=== PATIENT | male | born 1985 | race Caucasian/White ===

== ENCOUNTER 2023-06-26 11:03 | Emergency (ER) | payer MEDICAID ==
[~2023-06-26] VITALS: Ht 172.7 cm; Wt 69.0 kg
[2023-06-26 11:35] VITALS: BP 108/71; PULSE 94; RESP 18; TEMP 98.6; O2SAT 100
[2023-06-26] MEDS ORDERED: LIDOCAINE HCL 1% 20ML VIAL (Pyxis) INJ INFIL STA (15:11)
[2023-06-26 15:47] LABS: HEMATOCRIT. 29.8 % (42.0-52.0); MEAN CORPUSCULAR HEMOGLOBIN 27.7 pg (28.0-32.0); MEAN CORPUSCULAR HGB CONC 33.7 g/dL (31.0-37.0); MEAN CORPUSCULAR VOLUME 82.3 fL (80.0-94.0); MEAN PLATELET VOLUME 8.5 fl (7.4-10.4); PLATELET 289 x1000/uL (130-400); RED BLOOD CELL COUNT 3.62 mill/uL (4.7-6.1); RED CELL DISTRIBUTION WIDTH 14.5 % (11.6-14.6); WHITE BLOOD COUNT 5.5 x1000/uL (4.5-11.0)
[2023-06-26 15:48] LABS: DIFFERENTIAL COMMENT 1
[2023-06-26 15:52] LABS: CHLORIDE 103 mEq/L (98-107); INDEX HEMOLYSI 1 (1-3); INDEX ICTERIC 1 (1-4); INDEX LIPEMIC 1 (1-3); POTASSIUM 3.7 mEq/L (3.5-5.1); SODIUM 134 mEq/L (136-145)
[2023-06-26 16:02] LABS: ALANINE AMINOTRANSFERASE 24 IU/L (13-61); ALBUMIN 3.2 g/dL (3.4-5.0); ASPARTATE AMINOTRANSFERASE 20 IU/L (15-37); BILIRUBIN TOTAL 0.6 mg/dL (0.1-1.0); CALCIUM 8.7 mg/dL (8.5-10.1); CARBON DIOXIDE 25 mEq/L (21-32); CREATININE 0.7 mg/dL (0.6-1.3); GLUCOSE 117 mg/dL (70-105); PROTEIN TOTAL 9.5 g/dL (6.0-8.3); UREA NITROGEN BLOOD 11 mg/dL (7-21)
[2023-06-26] MEDS ORDERED: CEPH500T MT (16:02)
[2023-06-26] MEDS ORDERED: SULF1TAB48 MT (16:02)
[2023-06-26] MEDS ORDERED: NAPR500T7 MT (16:02)
[2023-06-26] MEDS ORDERED: SULFAMETHOXAZOLE/TRIMETHOPRIM 800/160MG TABLET PO ONE (16:15)
[2023-06-26] MEDS ORDERED: CEPHALEXIN 250MG CAPSULE PO ONE (16:15)
[2023-06-26 16:44] LABS: ERYTHROCYTE SEDIMENTATION RATE 103 mm/hr (0-15)
[2023-06-26 18:00] LABS: PLATELET ESTIMATE NORMAL
[2023-06-26 18:01] LABS: OVALOCYTES 1+
== END 2023-06-26 16:36 | disposition home or self-care (01) ==
LOC: ER 13:23
DX: L03.116 Cellulitis of left lower limb (principal); D64.9 Anemia, unspecified
CPT/HCPCS: 99284; 80053; 85025; 85651; 87040; 36415; 73610; 73630; J3490

== ENCOUNTER 2023-07-09 13:51 | Emergency (ER) | payer MEDICAID ==
[~2023-07-09] VITALS: Ht 172.7 cm; Wt 62.0 kg
[~2023-07-09 13:51] MED LIST: CEPH500T MT; NAPR500T7 MT; SULF1TAB48 MT
[2023-07-09 14:11] VITALS: BP 99/64; PULSE 98; RESP 16; TEMP 98.9; O2SAT 100
[2023-07-09] MEDS ORDERED: TOPUD MT (15:16)
[2023-07-09] MEDS ORDERED: DIPH25TA62 MT (15:16)
[2023-07-09] MEDS ORDERED: TOLN30CR17 TP (15:16)
== END 2023-07-09 16:14 | disposition home or self-care (01) ==
LOC: ER 13:51
DX: R21 Rash and other nonspecific skin eruption (principal); E11.9 Type 2 diabetes mellitus without complications
CPT/HCPCS: 99281; 99282